=== PATIENT | female | born 1940 | race Caucasian/White ===

== ENCOUNTER → 2023-04-29 | Outpatient (CLI) | payer OTHER ==
[2023-04-29 16:06] LABS: Free Thyroxine 1.27 ng/dL (0.70-1.60); Thyroid Stimulating Hormone 0.013 uIU/mL (0.360-4.800)
== END ==
LOC: LAB SHORT 15:41 → LAB 15:41
PROVIDERS: Physician Assistant
DX: E03.9 Hypothyroidism, unspecified (principal)
CPT/HCPCS: 84439; 84443; 84481

== ENCOUNTER → 2024-01-15 | Outpatient (CLI) | payer OTHER ==
[~2024-01-15] MED LIST: CELE200 PO; CYMBALTA60 M1 PO; GABA300 PO; METHI10 PO; MONT10T PO; PRAMIPEXOLE DI0.5 MG PO; TRAZ50 PO
[2024-01-15 10:26] LABS: BASOPHILS ABSOLUTE AUTO 0.03 K/mm3 (0.00-0.23); BASOPHILS PERCENT AUTO 1 % (0-2); EOSINOPHILS ABSOLUTE AUTO 0.17 K/mm3 (0.00-0.68); EOSINOPHILS PERCENT AUTO 3 % (0-6); Hematocrit 38.5 % (33.0-51.0); Hemoglobin 12.3 g/dL (11.5-16.0); IMMATURE GRAN ABSOLUTE AUTO 0.01 K/mm3 (0.00-0.10); IMMATURE GRAN PERCENT AUTO 0 % (0-1); LYMPHOCYTES ABSOLUTE AUTO 1.51 K/mm3 (0.84-5.20); LYMPHOCYTES PERCENT AUTO 24 % (21-46); MONOCYTES PERCENT AUTO 10 % (4-13); Mean Corpuscular HGB 26.9 pg (26.0-34.0); Mean Corpuscular HGB Conc 31.9 g/dL (31.5-36.5); Mean Corpuscular Volume 84 fL (80-100); Mean Platelet Volume 9.9 fL (9.1-12.4); NEUTROPHILS ABSOLUTE AUTO 3.91 K/mm3 (1.96-9.15); NEUTROPHILS PERCENT AUTO 63 % (41-73); Platelet Count 148 K/mm3 (150-400); RDW Coefficient Variation 13.7 % (11.7-14.2); RDW Standard Deviation 42.2 fL (35.1-46.3); Red Blood Cell Count 4.57 M/mm3 (3.80-5.20); White Blood Cell Count 6.23 K/mm3 (4.00-11.30)
[2024-01-15 10:47] LABS: Albumin, Blood 3.3 g/dL (3.4-5.0); Albumin/Globulin Ratio 0.9 (0.8-1.8); Bilirubin, Total 0.5 mg/dL (0.1-1.0); Bun/Creatinine Ratio 17.1 (12.0-20.0); Calcium, Blood 9.1 mg/dL (8.5-10.1); Creatinine, Blood 0.7 mg/dL (0.40-1.00); Globulin, Blood 3.8 g/dL (2.2-4.0); Potassium, Blood 3.1 mmol/L (3.5-5.5); Thyroid Stimulating Hormone 1.74 uIU/mL (0.360-4.800); Total Protein, Blood 7.1 g/dL (6.4-8.2)
== END ==
LOC: LAB SHORT 10:19 → LAB 10:19
PROVIDERS: Physician Assistant Medical
DX: R41.0 Disorientation, unspecified (principal)
CPT/HCPCS: 80053; 84443; 85025

== ENCOUNTER 2024-01-19 19:48 | Inpatient (IN) | payer OTHER ==
[~2024-01-19] VITALS: Ht 167.6 cm; Wt 63.5 kg
[2024-01-19 20:30] LABS: BASOPHILS ABSOLUTE AUTO 0.03 K/mm3 (0.00-0.23); BASOPHILS PERCENT AUTO 0 % (0-2); EOSINOPHILS ABSOLUTE AUTO 0.13 K/mm3 (0.00-0.68); EOSINOPHILS PERCENT AUTO 2 % (0-6); Hematocrit 39.6 % (33.0-51.0); Hemoglobin 12.7 g/dL (11.5-16.0); IMMATURE GRAN ABSOLUTE AUTO 0.02 K/mm3 (0.00-0.10); IMMATURE GRAN PERCENT AUTO 0 % (0-1); LYMPHOCYTES ABSOLUTE AUTO 1.38 K/mm3 (0.84-5.20); LYMPHOCYTES PERCENT AUTO 21 % (21-46); MONOCYTES PERCENT AUTO 7 % (4-13); Mean Corpuscular HGB 26.7 pg (26.0-34.0); Mean Corpuscular HGB Conc 32.1 g/dL (31.5-36.5); Mean Corpuscular Volume 83 fL (80-100); Mean Platelet Volume 9.6 fL (9.1-12.4); NEUTROPHILS ABSOLUTE AUTO 4.68 K/mm3 (1.96-9.15); NEUTROPHILS PERCENT AUTO 70 % (41-73); Platelet Count 186 K/mm3 (150-400); RDW Coefficient Variation 13.5 % (11.7-14.2); RDW Standard Deviation 41.1 fL (35.1-46.3); Red Blood Cell Count 4.76 M/mm3 (3.80-5.20); White Blood Cell Count 6.74 K/mm3 (4.00-11.30)
[2024-01-19 20:50] LABS: Albumin, Blood 3.7 g/dL (3.4-5.0); Bilirubin, Total 0.6 mg/dL (0.1-1.0); Bun/Creatinine Ratio 16.8 (12.0-20.0); Calcium, Blood 8.8 mg/dL (8.5-10.1); Creatinine, Blood 0.54 mg/dL (0.40-1.00); Globulin, Blood 3.7 g/dL (2.2-4.0); Total Protein, Blood 7.4 g/dL (6.4-8.2)
[2024-01-19] MEDS ORDERED: Potassium Chloride 20 MEQ/15 ML UDC PO ONE (22:45)
[2024-01-19] MEDS ORDERED: Mag Hydrox/AL Hydrox/Simeth 30 ML UDC PO ONE (22:45)
[2024-01-19] MEDS ORDERED: Lidocaine 2% Viscous Soln 15 ML UDC PO ONE (22:45)
[2024-01-19] MEDS ORDERED: NS 1,000 ML IV SCH (23:20)
[2024-01-19] MEDS ORDERED: Ondansetron HCl 2 MG / ML 2ML Vial ONE (23:41)
[2024-01-19] MEDS ORDERED: Ondansetron HCl 2 MG / ML 2ML Vial IV ONE (23:50)
[2024-01-20 00:23] LABS: Source, Urine Clean Catch
[2024-01-20 00:32] LABS: Bilirubin, Urine Neg (Neg); Blood, Urine Neg (Neg); Glucose Qualitative, Urine Neg (Neg); Ketones, Urine 2+ (Neg); Leukocyte Esterase, Urine Neg (Neg); Nitrite, Urine Neg (Neg); Protein, Urine Neg (Neg); Urobilinogen, Urine NORM (Normal)
[2024-01-20 00:35] LABS: Appearance, Urine Clear (Clear); Color, Urine Yellow (P-Yellow)
[2024-01-20] MEDS ORDERED: rOPINIRole HCl 0.25 MG Tab PO ONE (02:35)
[2024-01-20] MEDS ORDERED: Ipratropium/Albuterol SulF 2.5-0.5MG/3 ML Amp INH SCH (03:45)
[2024-01-20] MEDS ORDERED: OLANZapine 10 MG Vial IM ONE (04:35)
[2024-01-20 06:07] LABS: BASOPHILS ABSOLUTE AUTO 0.06 K/mm3 (0.00-0.23); BASOPHILS PERCENT AUTO 1 % (0-2); EOSINOPHILS ABSOLUTE AUTO 0.04 K/mm3 (0.00-0.68); EOSINOPHILS PERCENT AUTO 1 % (0-6); Hematocrit 41.1 % (33.0-51.0); IMMATURE GRAN ABSOLUTE AUTO 0.01 K/mm3 (0.00-0.10); IMMATURE GRAN PERCENT AUTO 0 % (0-1); LYMPHOCYTES ABSOLUTE AUTO 1.56 K/mm3 (0.84-5.20); LYMPHOCYTES PERCENT AUTO 20 % (21-46); MONOCYTES ABSOLUTE AUTO 0.64 K/mm3 (0.16-1.47); MONOCYTES PERCENT AUTO 8 % (4-13); Mean Corpuscular HGB 26.6 pg (26.0-34.0); Mean Corpuscular HGB Conc 31.6 g/dL (31.5-36.5); Mean Corpuscular Volume 84 fL (80-100); Mean Platelet Volume 9.6 fL (9.1-12.4); NEUTROPHILS ABSOLUTE AUTO 5.36 K/mm3 (1.96-9.15); NEUTROPHILS PERCENT AUTO 70 % (41-73); Platelet Count 182 K/mm3 (150-400); RDW Coefficient Variation 13.3 % (11.7-14.2); RDW Standard Deviation 41.1 fL (35.1-46.3); Red Blood Cell Count 4.89 M/mm3 (3.80-5.20); White Blood Cell Count 7.67 K/mm3 (4.00-11.30)
[2024-01-20 06:41] LABS: Alanine Aminotransfer (ALT/SGP 19 U/L (12-78); Albumin, Blood 3.8 g/dL (3.4-5.0); Alk Phos 62 U/L (50-136); Anion Gap 10 mmol/L (3-11); Aspartate Aminotrans (AST/SGOT 29 U/L (12-37); Bilirubin, Total 0.7 mg/dL (0.1-1.0); Blood Urea Nitrogen 6 mg/dL (8-24); Bun/Creatinine Ratio 12.5 (12.0-20.0); CHOL/HDL RATIO 2.5; CO2, Blood 27 mmol/L (21-32); Calcium, Blood 8.7 mg/dL (8.5-10.1); Chloride, Blood 105 mmol/L (98-108); Cholesterol 190 mg/dL (50-200); Creatinine, Blood 0.48 mg/dL (0.40-1.00); Globulin, Blood 3.7 g/dL (2.2-4.0); Glomerular Filtration Rate 95 (60-); Glucose, Blood 116 mg/dL (70-99); HDL Cholesterol 76 mg/dL (>39); LDL/HDL RATIO 1.4; Low Density Lipoprotein Chol 103 mg/dL (0-110); Potassium, Blood 3.7 mmol/L (3.5-5.5); Sodium, Blood 138 mmol/L (136-145); Total Protein, Blood 7.5 g/dL (6.4-8.2); Triglycerides 57 mg/dL (30-160); Very Low Density Lipoprot Chol 11 mg/dL (6-32)
[2024-01-20] MEDS ORDERED: Famotidine 20 MG Tab PO SCH (09:00)
[2024-01-20] MEDS ORDERED: Enoxaparin 40 MG/0.4 ML SYR SC SCH (09:00)
[2024-01-20 10:03] VITALS: BP 119/70
[2024-01-20] MEDS ORDERED: Atorvastatin 40 MG Tab PO SCH (13:00)
[2024-01-20] MEDS ORDERED: Aspirin 81 MG Chew PO SCH (13:00)
[2024-01-20 13:11] VITALS: BP 139/66
[2024-01-20] MEDS ORDERED: Cyclobenzaprine HCl 10 MG Tab PO PRN (13:40)
[2024-01-20] MEDS ORDERED: Acetaminophen 325 MG TABLET PO PRN (13:40)
[2024-01-20] MEDS ORDERED: Dexamethasone Sod Phos 10 MG/ML 1ML VIAL IV ONE (15:00)
[2024-01-20] MEDS ORDERED: PRAMIPEXOLE DI0.5 MG PO (15:27)
[2024-01-20] MEDS ORDERED: CELE200 PO (15:28)
[2024-01-20] MEDS ORDERED: METHI10 PO (15:29)
[2024-01-20] MEDS ORDERED: CYMBALTA60 M1 PO (15:29)
[2024-01-20] MEDS ORDERED: MONT10T PO (15:30)
[2024-01-20] MEDS ORDERED: GABA300 PO (15:31)
[2024-01-20] MEDS ORDERED: TRAZ50 PO (15:32)
[2024-01-20] MEDS ORDERED: Albuterol 2.5 MG/3 ML VIAL INH PRN (16:20)
--- NOTE | 2024-01-20 17:03 | NUR ---
Met with pt and her daughter this afternoon to discuss the patient's advance directive. The patient and daughter request change code to DNR status which aligns with her goals. The patient, daughter and granddaughter were informed this afternoon by Dr. Howe that the patient has brain cancer, and it can only be treated palliatively, no curative treatment available. Plan to visit with family again tomorrow for supportive visit.
[2024-01-20 19:23] VITALS: BP 133/70
--- NOTE | 2024-01-20 20:12 | NUR ---
SHIFT SUMMARY- DR ROJAS WAS AT THE BEDSIDE WITH THE PT AND FAMILY DISCUSSING THE RESULTS OF THE CT SCAN. PT WAS CHANGED TO A DNR PRIOR TO THE CT RESULT. PT FAMILY ARE STRUGGLING WITH THE NEW INFORMATION. PT SEEMS MORE CONCERNED WITH HOW HER FAMILY ARE TAKING THE INFORMATION THAN HERSELF. BEDSIDE REPORT COMPLETED WITH NIGHT RN. PT IN BED, CALL LIGHT IN REACH, FAMILY HAS GONE HOME FOR THE NIGHT. BED ALARM SET FOR SAFETY. NIGHT RN AWARE THE PT IS IMPULSIVE.
--- NOTE | 2024-01-20 22:04 | NUR ---
ORAL INTAKE: PATIENT HAS NO DIET ORDERS AND NOT IVF ORDERS. DR BROWER IS CALLED AND ORDERS TO DO BEDSIDE SWALLOW EVAL AND ORDER REGULAR DIET EMMA IF PATIENT PASSES EVAL. PATIENT WAS ABLE TO SASHA WATER WITHOUT DIFFICULY AND NO COUGHING NOTED.
[2024-01-21] MEDS ORDERED: Dexamethasone Sodium Phosphate 4 MG/ML 1ML Vial IV SCH
[2024-01-21] MEDS ORDERED: Melatonin 5 MG Tablet PO PRN (00:20)
--- NOTE | 2024-01-21 03:16 | NUR ---
NUTRITION: PATIENT WAS ASKING FOR PO FLUIDS BUT HAD AN NPO ORDER. DR BROWER WAS CALLED AND OREDER A BEDSIDE SWALLOW EVAL, IF PASSED ORDER A REGULAR DIET EMMA. PATIENT WAS ABLE TO TAKE THIN LIQUIDS WITH NO DIFFICULT OR COUGHING OBSERVED. PATIENT THEN ATE A CONTAINER OF APPLE SAUCE AND TOLERATED THAT WELL ALSO.
--- NOTE | 2024-01-21 03:22 | NUR ---
LATE ENTRY FOR 01/20/24 @ 9384: UNCLAIMED PROPERTY MANAGER CALLED TO REPORT ST ELEVATIONS AND CHANGES. PATIENT WAS ASYMPTOMATIC. DR BROWER WAS CALLED AND ORDER FOR A STAT EKG WAS OBTAINED.
--- NOTE | 2024-01-21 03:26 | NUR ---
LATE ENTRY FOR 01/20/24 @ 2300: PATIENT IS UNABLE TO SLEEP AND IS RESTLESS. DR BROWER WAS CALLED AND AN ORDER FOR MELATONIN WAS OBTAINED. MD WAS UPDATED ON THE RESULT OF EKG. ORDER WAS OBTAINED FOR A PRN EKG FOR CHEST PAIN OR EKG CHANGES.
[2024-01-21 03:43] VITALS: BP 148/86
[2024-01-21 06:28] LABS: Bun/Creatinine Ratio 26.6 (12.0-20.0); Creatinine, Blood 0.49 mg/dL (0.40-1.00); Potassium, Blood 3.8 mmol/L (3.5-5.5)
[2024-01-21 07:10] VITALS: BP 146/71
--- NOTE | 2024-01-21 07:40 | NUR ---
SHIFT SUMMARY: PATIENT HAD NO NEURO CHANGES THIS SHIFT. ORIENTED TO SELF BUT NOT PLACE AND TIME. GOOD EFFECT FROM MELATONIN WAS OBSERVED. PATIENT WAS CONTINENT THROUGH THE SHIFT BUT DID NOT CALL FOR ASSIST. BED ALARM IS ON FOR SAFETY.
[2024-01-21] MEDS ORDERED: Regadenoson 0.4 MG/5 ML SYRINGE ONE (13:34)
[2024-01-21 17:02] VITALS: BP 143/93
--- NOTE | 2024-01-21 17:20 | NUR ---
SHIFT SUMMARY MS HERNANDEZ IS ABLE TO TELL ME HER NAME, THAT SHE IS IN HOSPITAL IN [place] AND IT'S J[birth year]UARY 1923. SHE IS VERY FORGETFUL, NEEDING A LOT OF DIRECTION WHEN REPOSITIONING FROM BED TO CHAIR/BEDSIDE COMMODE. SHE GOT UP FROM THE CHAIR SEVERAL TIMES AND SET OFF CHAIR ALARM, LEGS OUT OF BED, BED ALARM ON. REMINDED ON PATIENT SAFETY, REORIENTED. SIDE RAILS UP X3. ON TELEMETRY ST 116 MOST RECENTLY. CALLS FROM [employer] WHEN LEADS GET DISPLACED BUT NOT FOR RHYTHM ABNORMALITIES. SHE HAD 2ND PART OF STRESS TEST COMPLETED TODAY. SHE HAS HAD POOR PO INTAKE SHE SAID SHE DOESN'T LIKE THE FOOD SHE HAS BEEN GIVEN. SHE LOOKS THIN. OFFERED DRINKS/SUPPLIMENTS. SHE DESCRIBED A MILD R SIDED HEADACHE AND SAID THAT SHE SOMETIMES GETS AN "ICECREAM HEADACHE" THOUGH NOT THIS SHIFT. FAMILY VISITED TODAY. BED LOW, CALL LIGHT IN REACH.
[2024-01-21 19:53] VITALS: BP 144/79
[2024-01-22 03:20] VITALS: BP 141/67
--- NOTE | 2024-01-22 05:52 | NUR ---
SUMMARY: PT ORIENTED TO SELF AND FAMILY BUT OTHERWISE WAS PLEASANTLY CONFUSED W/BED ALARM ON FOR SAFETY. SHE DID BECOME AGGITATED AND IRRITABLE THIS [employer]ANT MANAGER AND WAS RESISTANT TO INSTRUCTION AND REDIRECTION. PT WAS VERY FIGITY, RESTLESS, PULLING AT LINES AND MADE MULTIPLE REPEATED ATTEMPTS OOB BY SELF. PRN FLEXERIL WAS RECEIVED FOR POSSIBLE PAIN AND 1:1 SITTER WAS PROVIDED UNTIL PT SETTLED. SHE WAS CONTINENT/INCONTINENT W/2PA TO [facility] AND ATTENDS WERE CHANGED PRN. PO INTAKE ENCOURAGED BUT POOR APPETITE PERSISTS. SHE REMAINS ON TELE AND WAS NSR/S.TACH W/BBB AT 90'S-100'S BPM. NO C/O CP OR S/S CARDIAC DISTRESS. PROBABLE D/C HOME W/FAMILY TODAY. WCTM AND REPORT TO DAY RN.
[2024-01-22 07:05] VITALS: BP 118/78
[2024-01-22] MEDS ORDERED: DECADRON4 M1 PO (13:02)
[2024-01-22] MEDS ORDERED: FAMO20 PO (13:07)
[2024-01-22] MEDS ORDERED: MELATONIN5 M1 PO (13:07)
--- NOTE | 2024-01-22 16:32 | NUR ---
discharge reviewd with pt and friend. verbalized understnding meds and inst. pt out door with transport at 1620 iv pulled by aide. tele removed by aide.
== END 2024-01-22 16:23 | disposition hospice, home (50) | DRG 54 ==
LOC: ER 19:48 → PCU 19:49 → MEDS 19:49 → ER 19:49 → MEDS 01-20 10:08 → ENPENDDIS 01-22 10:54 → MEDS 01-22 16:23
PROVIDERS: Emergency Medicine; Family Medicine; Physician Assistant; Student in an Organized Health Care Education/Training Program; ADMIT Internal Medicine
DX: C79.31 Secondary malignant neoplasm of brain (principal); I63.9 Cerebral infarction, unspecified; G81.94 Hemiplegia, unspecified affecting left nondominant side; R07.9 Chest pain, unspecified; J44.9 Chronic obstructive pulmonary disease, unspecified; Z66 Do not resuscitate; Z51.5 Encounter for palliative care; E87.6 Hypokalemia; R63.4 Abnormal weight loss; E86.0 Dehydration; K21.9 Gastro-esophageal reflux disease without esophagitis; Z85.3 Personal history of malignant neoplasm of breast; Z90.13 Acquired absence of bilateral breasts and nipples; Z88.8 Allergy status to other drugs, medicaments and biological substances; Z88.5 Allergy status to narcotic agent; Z68.22 Body mass index [BMI] 22.0-22.9, adult
CPT/HCPCS: 36415; 70450; 71046; 71260; 74177; 78452; 80048; 80053; 80061; 81003; 83036; 83690; 83880; 84443; 84484; 85025; 85379; 93005; 93010; 93017; 93306; 93880; 94640; 94664; 94760; 96361; 96372-59; 96374-59; 97110; 97116; 97162; 97165; 97530; 97535; 99285-25; A9270; A9500; G0378; J1100; J1650; J2405; J2785; J7030; Q9967